=== PATIENT | male | born 1960 | race Caucasian/White ===

== ENCOUNTER 2020-05-07 22:06 | Emergency (ER) | payer OTHER ==
[~2020-05-07] VITALS: Ht 170.2 cm; Wt 100.0 kg
[~2020-05-07 22:06] MED LIST: ASPI81TA87 PO; ATOR40TA28 PO; CARB15DR OU; DIPH25 PO; FLUT220HFA IH; IPRAHFA IH; MIRT30 PO; NICO1PAT16 TD; NITR0.4T52 SL; OMEP20 PO; PRAV40TA4 PO; RISP4TAB73 PO; SERT-162 PO; SUCR1TAB PO
[2020-05-07] MEDS ORDERED: XALA2.5OS OD (22:16)
[2020-05-07] MEDS ORDERED: PROPARACAINE HCL 0.5% 15 ML OPHTHALMIC SOLUTION OD ONE (23:15)
[2020-05-07] MEDS ORDERED: FLUORESCEIN SODIUM 1 MG STRIP OD ONE (23:15)
[2020-05-08 01:30] VITALS: BP 151/90
[2020-05-08] MEDS ORDERED: ERYTHROMYCIN 0.5% 3.5 GM TUBE OPHTHALMIC OINTMENT OD ONE (01:30)
== END 2020-05-08 02:00 | disposition home or self-care (01) ==
LOC: EMS 22:06
DX: T15.01XA Foreign body in cornea, right eye, initial encounter (principal); F17.210 Nicotine dependence, cigarettes, uncomplicated; X58.XXXA Exposure to other specified factors, initial encounter; Y93.89 Activity, other specified; Y92.89 Other specified places as the place of occurrence of the external cause; Y99.8 Other external cause status
CPT/HCPCS: 65222; 99284; Z7502; Z7610